=== PATIENT | female | born 1980 | race Caucasian/White ===

== ENCOUNTER → 2024-11-18 11:08 | Outpatient (BNVA) | payer MEDICAID, SELFPAY | PROVIDERS: Referring Provider Nurse Practitioner Family; Visit Provider Nurse Practitioner Family | DX: D18.01 Hemangioma of skin and subcutaneous tissue (principal); L57.8 Other skin changes due to chronic exposure to nonionizing radiation; L70.0 Acne vulgaris; L81.4 Other melanin hyperpigmentation | CPT/HCPCS: 99203 ==